=== PATIENT | male | born 1975 | race Caucasian/White ===

== ENCOUNTER 2019-05-31 15:32 | Emergency (ER) | payer OTHER, SELFPAY ==
[2019-05-31] MEDS ORDERED: Lidocaine 1% (PF) 30 ML VIAL ONE (15:55)
[2019-05-31] MEDS ORDERED: Bacitracin 1 PK ONE (16:10)
== END 2019-05-31 16:20 | disposition home or self-care (01) ==
LOC: NAV ERS 15:32
DX: S61.412A Laceration without foreign body of left hand, initial encounter (principal); M10.9 Gout, unspecified; F17.210 Nicotine dependence, cigarettes, uncomplicated; W29.8XXA Contact with other powered hand tools and household machinery, initial encounter
CPT/HCPCS: 12001; J2001

== ENCOUNTER 2020-01-25 10:52 | Emergency (ER) | payer OTHER ==
[2020-01-25] MEDS ORDERED: methylPREDNISolone Sod Succ/PF 125 MG/2 ML VIAL ONE (11:34)
== END 2020-01-25 11:41 | disposition home or self-care (01) ==
LOC: NAV ERS 10:52
DX: M10.9 Gout, unspecified (principal); F17.210 Nicotine dependence, cigarettes, uncomplicated; Z79.899 Other long term (current) drug therapy
CPT/HCPCS: 96372; 99283; J2930